=== PATIENT | male | born 1990 | race Two or more races ===

== ENCOUNTER 2020-05-11 05:14 | Emergency (ER) | payer MEDICAID ==
[~2020-05-11] VITALS: Ht 175.3 cm; Wt 75.9 kg
[~2020-05-11 05:14] MED LIST: ACET325T14 PO; ACID1TAB3 PO; CEPH750C7 PO; SULF1TAB24 PO
[2020-05-11] MEDS ORDERED: LORazepam 1MG TABLET ONE (05:59)
[2020-05-11] MEDS ORDERED: LORazepam 1MG TABLET PO ONE (06:00)
[2020-05-11 06:04] LABS: BASOPHILS % (AUTO) 1 % (0-1); EOSINOPHILS % (AUTO) 1 % (1-7); LYMPHOCYTES % (AUTO) 24 % (22-44); MEAN CORPUSCULAR HEMOGLOBIN 30.5 pg (27.5-34.5); MEAN CORPUSCULAR HGB CONC 34.6 g/dL (33.2-36.2); MEAN PLATELET VOLUME 8.3 fL (7.4-10.4); MONOCYTES % (AUTO) 12 % (2-9); NEUTROPHILS % (AUTO) 63 % (42-75); PLATELET COUNT 253 x10^3/uL (130-400); RED BLOOD COUNT 5.55 x10^6/uL (4.38-5.82); RED CELL DISTRIBUTION WIDTH 13.6 % (9.4-14.8)
[2020-05-11 06:05] LABS: MD NO
[2020-05-11 06:11] LABS: ALANINE AMINOTRANSFERASE 55 U/L (12-78); ALBUMIN 4.5 g/dL (3.4-5.0); ANION GAP 11 mmol/L (5-15); CALCIUM 9.3 mg/dL (8.5-10.1); CHLORIDE 106 mmol/L (98-107); CREATININE 1.12 mg/dL (0.7-1.3)
[2020-05-11 06:13] LABS: ALKALINE PHOSPHATASE 80 U/L (45-117); BILIRUBIN,TOTAL 2.7 mg/dL (0.2-1.0); TOTAL PROTEIN 8.3 g/dL (6.4-8.2)
[2020-05-11 06:14] LABS: SALICYLATE LEVEL < 1.7 mg/dL (2.8-20.0)
[2020-05-11 06:41] LABS: AMPHETAMINE SCREEN, URINE Positive (Negative); BARBITURATE SCREEN, URINE Negative (Negative); BENZODIAZEPINE SCREEN, URINE Negative (Negative); CANNABINOID SCREEN, URINE Positive (Negative); COCAINE SCREEN, URINE Negative (Negative); METHADONE SCREEN, URINE Negative (Negative); OPIATE SCREEN, URINE Negative (Negative)
[2020-05-11] MEDS ORDERED: SODIUM CHLORIDE 0.9% 1,000ML IVBOLUS ONE (07:30)
[2020-05-11 13:39] VITALS: BP 103/79
== END 2020-05-11 14:14 | disposition home or self-care (01) ==
LOC: ED 06:24
DX: F15.150 Other stimulant abuse with stimulant-induced psychotic disorder with delusions (principal); E86.0 Dehydration; R06.89 Other abnormalities of breathing; F12.129 Cannabis abuse with intoxication, unspecified; R00.0 Tachycardia, unspecified; F17.210 Nicotine dependence, cigarettes, uncomplicated; F41.9 Anxiety disorder, unspecified
CPT/HCPCS: 36415; 71045; 80053; 80299; 80307; 82550; 85025; 93005; 96360; 96361; 99285; J7030; 80329; G0480